=== PATIENT | male | born 1960 | race African-American/Black ===

== ENCOUNTER 2019-01-12 18:16 | Observation (INO) | payer OTHER ==
[2019-01-12] MEDS ORDERED: ASPIRIN 81 MG TABLET, CHEWABLE PO ONE (18:42)
--- NOTE | 2019-01-12 19:16 | RADIOLOGY REPORT (SQ) ---
EXAM DESCRIPTION: CHEST SINGLE VIEW COMPLETED DATE/TIME: 01/12/2019 7:05 pm REASON FOR STUDY: chest pain COMPARISON: None. EXAM PARAMETERS: NUMBER OF VIEWS: One view. TECHNIQUE: Single frontal radiographic view of the chest acquired. RADIATION DOSE: NA LIMITATIONS: None. FINDINGS: LUNGS AND PLEURA: No opacities, masses or pneumothorax. No pleural effusion. MEDIASTINUM AND HILAR STRUCTURES: No masses. Contour normal. HEART AND VASCULAR STRUCTURES: Heart normal in size. Normal vasculature. BONES: No acute findings. HARDWARE: Sternotomy wires. OTHER: No other significant finding. IMPRESSION: NO ACUTE RADIOGRAPHIC FINDING IN THE CHEST. TECHNICAL DOCUMENTATION: JOB ID: [id number] [email or web address]- All Rights Reserved Reading location - IP/workstation name: [email or web address]
[2019-01-12 19:18] LABS: ABSOLUTE EOSINOPHILS # (AUTO) 0.1 10^3/uL (0.0-0.6); ABSOLUTE LYMPHOCYTES (AUTO) 1.2 10^3/uL (0.5-4.7); ABSOLUTE MONOCYTES (AUTO) 0.5 10^3/uL (0.1-1.4); ABSOLUTE NEUT (AUTO) 1.9 10^3/uL (1.7-8.2); BASOPHILS % (AUTO) 0.7 % (0-2); EOSINOPHILS % (AUTO) 2.3 % (0-6); HEMATOCRIT 41.7 % (37.9-51.0); HEMOGLOBIN 13.9 g/dL (13.5-17.0); LYMPHOCYTES % (AUTO) 32.3 % (13-45); MEAN CORPUSCULAR HEMOGLOBIN 28.8 pg (27.0-33.4); MEAN CORPUSCULAR HGB CONC 33.5 g/dL (32.0-36.0); MEAN CORPUSCULAR VOLUME 86 fl (80-97); MONOCYTES % (AUTO) 12.4 % (3-13); PLATELET COUNT 183 10^3/uL (150-450); RED BLOOD COUNT 4.84 10^6/uL (4.35-5.55); RED CELL DISTRIBUTION WIDTH 16.7 % (11.5-14.0); SEGMENTED NEUTROPHILS % (AUTO) 52.3 % (42-78); TOTAL CELLS COUNTED % (AUTO) 100 %; WHITE BLOOD COUNT 3.7 10^3/uL (4.0-10.5)
[2019-01-12 19:38] LABS: ALBUMIN 4.3 g/dL (3.5-5.0); ALKALINE PHOSPHATASE 42 U/L (38-126); ANION GAP 10 (5-19); ASPARTATE AMINO TRANSFERASE 45 U/L (17-59); BILIRUBIN,DIRECT 0.1 mg/dL (0.0-0.4); BILIRUBIN,TOTAL 1.3 mg/dL (0.2-1.3); BLOOD UREA NITROGEN 14 mg/dL (7-20); CALCIUM 9.1 mg/dL (8.4-10.2); CARBON DIOXIDE 25 mmol/L (22-30); CHLORIDE 104 mmol/L (98-107); CREATINE KINASE 564 U/L (55-170); GLUCOSE 152 mg/dL (75-110); POTASSIUM 4.1 mmol/L (3.6-5.0); TOTAL PROTEIN 7.7 g/dL (6.3-8.2)
[2019-01-12 19:50] LABS: CREATINE KINASE MB 3.32 ng/mL (<4.55); TROPONIN I 0.016 ng/mL
[2019-01-12] MEDS ORDERED: MAG HYDROX/AL HYDROX/SIMETH SUSP 30 ML UDCUP PO ONE (20:37)
[2019-01-12] MEDS ORDERED: NITROGLYCERIN 0.4 MG/TAB 25 TAB/BOTTLE SL PRN ×2 (20:37→22:59)
[2019-01-12] MEDS ORDERED: LIDOCAINE 2% VISCOUS SOLN 20 ML UDCUP PO ONE (20:37)
[2019-01-12] MEDS ORDERED: METOCLOPRAMIDE HCL ORAL SOLN 10 MG/10 ML UDCUP PO ONE (20:37)
--- NOTE | 2019-01-12 20:39 | ER Document Report ---
ED Cardiac - General Chief Complaint: Chest Pain Stated Complaint: CHEST PAIN Time Seen by Provider: 01/12/19 18:31 Notes: Patient is a 58-year-old male presents emergency department with a chief complaint of chest pain. His onset of chest pain was about 45 minutes prior to arrival to the emergency department. Patient states that it feels similar to his heart attack he had before. Patient states that the pain is in the mid chest and states it feels like a burning sensation. He is also having left arm pain. He had an ND in 2002 with 2 stents placed in the double bypass surgery in 2017 at [facility]. TRAVEL OUTSIDE OF THE [place] IN LAST 30 DAYS: No - Related Data Allergies/Adverse Reactions: No Known Allergies Allergy (Verified 01/12/19 18:34) Past Medical History - General Information source: Patient - Social History Smoking Status: Former Smoker Family History: Reviewed & Not Pertinent Patient has suicidal ideation: No Patient has homicidal ideation: No - Past Medical History Cardiac Medical History: Reports: Hx Coronary Artery Disease, Hx Heart Attack, Hx Hypercholesterolemia, Hx Hypertension Endocrine Medical History: Reports: Hx Diabetes Mellitus Type 2 Renal/ Medical History: Reports: Hx Kidney Stones GI Medical History: Reports: Hx Gastroesophageal Reflux Disease Psychiatric Medical History: Reports: Hx Depression Past Surgical History: Reports: Hx Cardiac Surgery - stents x 2, Hx Cholecystectomy, Hx Coronary Artery Bypass Graft, Hx Open Heart Surgery - cabg x 2, Hx Orthopedic Surgery - right knee right shoulder - Immunizations Hx Diphtheria, Pertussis, Tetanus Vaccination: Yes Review of Systems - Review of Systems Notes: REVIEW OF SYSTEMS: CONSTITUTIONAL : Denies recent illness. Denies recent unintentional weight loss. Denies fever, chills, or sweats. EENT: Denies eye, ear, throat, or mouth pain, discharge, or symptoms. Denies nasal or sinus congestion. CARDIOVASCULAR: See HPI. RESPIRATORY: Denies shortness of breath, cough, congestion, difficulty b reathing, or wheezing. GASTROINTESTINAL: Denies nausea, vomiting, and diarrhea. Denies abdominal pain. Denies constipation. GENITOURINARY: Denies difficulty urinating, burning, blood in urine, urgency or frequency. MUSCULOSKELETAL: Denies neck and back pain. Denies joint pain or swelling. SKIN: Denies rash, itchiness, or lesions HEMATOLOGIC : Denies easy bruising or bleeding. LYMPHATIC: Denies swollen, painful, enlarged glands. NEUROLOGICAL: Denies no numbness or tingling denies weakness. Denies headache. Denies altered mental status. Denies alteration in speech. PSYCHIATRIC: Denies stress, anxiety, alteration in sleep patterns, or depression. All other systems reviewed and negative. Physical Exam - Vital signs Vitals: Temp Pulse BP Pulse Ox 97.9 F 80 167/96 H 97 01/12/19 18:32 01/12/19 18:32 01/12/19 18:32 01/12/19 18:32 - Notes Notes: PHYSICAL EXAMINATION: GENERAL: Appears well, healthy, well-nourished, no acute distress. HEAD: Normocephalic, atraumatic. EYES: PERRL, conjunctiva normal, all extraocular movements intact, sclera n onicteric ENT: Moist mucous membranes. NECK: Supple, no noticeable swelling, redness, rash. Normal range of motion. LUNGS: Equal breath sounds bilaterally and clear to auscultation. No wheezes rales or rhonchi. CARDIOVASCULAR: S1-S2, regular rate, regular rhythm. Radial pulses 2+, normal. ABDOMEN: Normoactive bowel sounds. Soft, nontender, no guarding, no rebound tenderness, and no masses palpated. EXTREMITIES: Normal strength and range of motion, no pitting or edema. No cyanosis. NEUROLOGICAL: Moves all extremities upon command. Strength 5/5 in all extremities. PSYCH: Normal mood, normal affect. SKIN: Warm, dry. No rash, lesions, ulcerations noted. Normal skin turgor. Course - Re-evaluation Re-evalutation: 01/12/19 20:48 I reevaluated the patient and he states he feels better after receiving aspirin. Still admits to some chest pain. 01/12/19 21:35 We will add GI cocktail to help.Hematology shows a white blood cell count of 3700. CK is 564. His troponin at this time is indeterminant at 0.016. We will add on BNP. Patient states that his chest pain has gone away. I spoke with Dr. Alatorre in regards to this patient. Patient will be admitted to telemetry unit. - Vital Signs Vital signs: Temp Pulse Resp BP Pulse Ox 98 F 63 16 148/98 H 98 01/13/19 00:00 01/13/19 00:00 01/13/19 00:00 01/13/19 00:00 01/13/19 00:00 - Laboratory Result Diagrams: 01/12/19 19:00 01/12/19 19:00 Laboratory results interpreted by me: 01/12/19 01/12/19 19:00 19:00 WBC 3.7 L RDW 16.7 H Glucose 152 H Creatine Kinase 564 H - EKG Interpretation by Me Additional EKG results interpreted by me: 01/12/19 21:40 Sinus rhythm. Rate 82. UT 164; QRS 92; QT 388; QTc 453. Discharge - Discharge Clinical Impression: Chest pain Qualifiers: Chest pain type: chest pain due to myocardial ischemia Ischemic chest pain type: stable angina pectoris Qualified Code(s): I20.8 - Other forms of angina pectoris Condition: Stable Disposition: ADMITTED OBSERVATION Admitting Provider: Celi (Hospitalist) Unit Admitted: Telemetry
[2019-01-12] MEDS ORDERED: ACETAMINOPHEN 325 MG TABLET PO PRN (22:52)
[2019-01-12] MEDS ORDERED: MAG HYDROX/AL HYDROX/SIMETH SUSP 30 ML UDCUP PO PRN (22:52)
[2019-01-12] MEDS ORDERED: TEMAZEPAM 15 MG CAPSULE PO PRN (22:52)
[2019-01-12] MEDS ORDERED: ONDANSETRON HCL INJ/PF 4 MG/2 ML SDV IV PRN (22:52)
[2019-01-12] MEDS ORDERED: HYDRALAZINE HCL INJ/PF 20 MG/1 ML SDV IV PRN (22:59)
[2019-01-12] MEDS ORDERED: LABETALOL HCL INJ 20 MG/4 ML DISP.SYRIN IV PRN (22:59)
[2019-01-12] MEDS ORDERED: INSULIN REG, HUMAN 100 UNIT/ML 3 ML VIAL (PYX) SUBCUT PRN (22:59)
[2019-01-12] MEDS ORDERED: MORPHINE SULFATE 10 MG/ML INJ IV PRN (22:59)
[2019-01-12] MEDS ORDERED: DEXTROSE 40% GEL 15 GM TUBE PO PRN ×2 (23:00)
[2019-01-12] MEDS ORDERED: DEXTROSE 50%-WATER 25 GM/50 ML DISP.SYRIN IV PRN ×2 (23:00)
[2019-01-12] MEDS ORDERED: GLUCAGON,HUMAN RECOMB 1 MG INJ IM PRN (23:00)
[2019-01-12] MEDS ORDERED: MAGNESIUM HYDROXIDE SUSP 30 ML UDCUP PO PRN (23:01)
--- NOTE | 2019-01-12 23:12 | EKG REPORT ---
SEVERITY:- ABNORMAL ECG - SINUS RHYTHM PROBABLE LEFT ATRIAL ABNORMALITY INFERIOR INFARCT, OLD : Confirmed by: Edwin Lyn 12-Jan-2019 23:11:15
[2019-01-13 00:33] LABS: CREATINE KINASE MB 12.5 ng/mL (<4.55)
[2019-01-13 00:34] LABS: FREE T3 3.94 pg/mL (2.77-5.27); FREE T4 (FREE THYROXINE) 1.21 ng/dL (0.78-2.19)
[2019-01-13 00:40] LABS: TROPONIN I 2.9 ng/mL
--- NOTE | 2019-01-13 03:43 | PDOC H&P ---
History of Present Illness Admission Date/PCP: 01/12/19 21:47 NURIS SOLANO MD Patient complains of: Chest pain History of Present Illness: VINOD CASTELLANO is a 58 year old male who presents the emergency room with the acute onset of chest pain. Patient admits developing chest pain at approximately 6 PM on the day of admission, while driving home in his pickup, and presenting to the emergency room within 40 minutes of the onset of the chest pain. Pain developed suddenly and was a severe constant deep burning sensation in his mid chest radiating to his left arm, just like the pain he had with a previous myocardial infarction. The pain was partially relieved by aspirin and a GI cocktail given in the emergency room. He has not identified any other aggravating or ameliorating factors for his chest pain. In the emergency room he was found to have an initial evaluation including cardiac enzymes and an EKG that showed no evidence of acute myocardial ischemia or injury. He was subsequently admitted to observation status for further evaluation and treatment. Past Medical History Cardiac Medical History: Reports: Coronary Artery Disease, Myocardial Infarction, Hyperlipidema, Hypertension Denies: Atrial Fibrillation, Congestive Heart Failure, DVT, Pulmonary Embolism Pulmonary Medical History: Denies: Asthma, Chronic Obstructive Pulmonary Disease (COPD) EENT Medical History: Denies: Cataracts, Ears - Hearing aids Neurological Medical History: Denies: Hemorrhagic CVA, Ischemic CVA, Seizures Endocrine Medical History: Reports: Diabetes Mellitus Type 2, Obesity Denies: Diabetes Mellitus Type 1, Hyperthyroidism, Hypothyroidism Renal/ Medical History: Denies: Chronic Kidney Disease, Nephrolithiasis Malignancy Medical History: Reports: None GI Medical History: Reports: Gastroesophageal Reflux Disease Denies: Cirrhosis, Hepatitis Musculoskeltal Medical History: Denies: Arthritis, Gout Skin Medical History: Denies: Eczema, Psoriasis Psychiatric Medical History: Reports: Depression Denies: Alcohol Dependency, Substance Abuse, Tobacco Dependency Traumatic Medical History: Reports: None Hematology: Denies: Anemia, Bleeding Tendencies Infectious Medical History: Reports: None Past Surgical History Past Surgical History: Reports: Cardiac Catheterization, Cholecystectomy, Coronary Artery Bypass Graft, Coronary Stent - X 2, Orthopedic Surgery - right knee, right shoulder Social History Information Source: Patient Lives with: Spouse/Significant other Smoking Status: Former Smoker Electronic Cigarette use?: No Frequency of Alcohol Use: None Hx Recreational Drug Use: No Drugs: None Hx Prescription Drug Abuse: No - Advance Directive Resuscitation Status: Full Code Surrogate healthcare decision maker:: Liz Castellano Family History Family History: CAD - Grandmother, DM - Self and brother has prediabetes, Hypertension - Mother, Other - Kidney disease in his mother. denies: Malignancy Parental Family History Reviewed: Yes Children Family History Reviewed: No Sibling(s) Family History Reviewed.: Yes Medication/Allergy Home Medications: Hydromorphone HCl [Dilaudid 2 mg Tablet] 2 mg PO Q4HP PRN #10 tablet 12/24/13 Oxycodone HCl/Acetaminophen [Percocet 10-325 Mg Tablet] 1 each PO Q6 PRN #14 tablet 12/25/13 Dicyclomine HCl [Bentyl 20 mg Tablet] 20 mg PO QID PRN #16 tablet 01/19/14 Allergies/Adverse Reactions: No Known Allergies Allergy (Verified 01/12/19 18:34) Review of Systems Constitutional: ABSENT: chills, fever(s) Eyes: ABSENT: visual disturbances, other - Eye pain Ears: ABSENT: hearing changes, other - Ear pain Nose, Mouth, and Throat: ABSENT: mouth pain, sore throat Cardiovascular: PRESENT: as per HPI, chest pain. ABSENT: dyspnea on exertion, edema, orthropnea, palpitations Respiratory: ABSENT: cough, dyspnea Gastrointestinal: ABSENT: abdominal pain, constipation, diarrhea, nausea, vomiting Genitourinary: ABSENT: dysuria, hematuria Musculoskeletal: ABSENT: back pain, joint swelling, muscle weakness Integumentary: ABSENT: pruritus, rash Neurological: ABSENT: confusion, convulsions, focal weakness, memory loss, syncope Psychiatric: ABSENT: anxiety, depression Endocrine: ABSENT: cold intolerance, heat intolerance Hematologic/Lymphatic: ABSENT: easy bleeding, easy bruising Allergic/Immunologic: ABSENT: seasonal rhinorrhea Physical Exam Vital Signs: Temp Pulse Resp BP Pulse Ox 97.9 F 80 27 H 152/98 H 97 01/12/19 18:32 01/12/19 18:32 01/12/19 22:01 01/12/19 22:01 01/12/19 22:01 Intake & Output 01/10/19 01/11/19 01/12/19 23:59 23:59 23:59 Weight 94.8 kg General appearance: PRESENT: no acute distress, cooperative, obese Head exam: PRESENT: atraumatic, normocephalic Eye exam: PRESENT: conjunctiva pink. ABSENT: conjunctival injection, scleral icterus Ear exam: PRESENT: normal external ear exam. ABSENT: bleeding, drainage Mouth exam: PRESENT: dry mucosa, neck supple Neck exam: ABSENT: thyromegaly, tracheal deviation Respiratory exam: PRESENT: clear to auscultation jose juan, symmetrical, unlabored Cardiovascular exam: PRESENT: RRR. ABSENT: clicks, gallop, rubs Pulses: PRESENT: normal radial pulses, normal dorsalis pedis pul Vascular exam: PRESENT: normal capillary refill. ABSENT: pallor GI/Abdominal exam: PRESENT: normal bowel sounds, soft. ABSENT: tenderness Rectal exam: PRESENT: deferred Extremities exam: ABSENT: joint swelling, pedal edema Musculoskeletal exam: ABSENT: deformity, dislocation Neurological exam: PRESENT: alert, oriented to person, oriented to place, oriented to time, oriented to situation, reflexes normal, CN II-XII grossly intact. ABSENT: motor sensory deficit Psychiatric exam: PRESENT: appropriate affect, normal mood Skin exam: PRESENT: dry, intact, warm. ABSENT: jaundice, rash, urticaria Results Laboratory Results: 01/12/19 19:00 01/12/19 19:00 01/12/19 01/12/19 19:00 19:00 WBC 3.7 L RBC 4.84 Hgb 13.9 Hct 41.7 MCV 86 MCH 28.8 MCHC 33.5 RDW 16.7 H Plt Count 183 Seg Neutrophils % 52.3 Sodium 139.0 Potassium 4.1 Chloride 104 Carbon Dioxide 25 Anion Gap 10 BUN 14 Creatinine 1.23 Est GFR ( Amer) > 60 Glucose 152 H Calcium 9.1 Magnesium 1.7 Total Bilirubin 1.3 AST 45 Alkaline Phosphatase 42 Total Protein 7.7 Albumin 4.3 Lipase 150.3 01/12/19 01/12/19 01/12/19 19:00 19:00 19:00 Creatine Kinase 564 H CK-MB (CK-2) 3.32 Troponin I 0.016 NT-Pro-B Natriuret Pep 138 Impressions: Chest X-Ray 01/12/19 18:43 IMPRESSION: NO ACUTE RADIOGRAPHIC FINDING IN THE CHEST. Assessment and Plan - Diagnosis (1) Chest pain Qualifiers: Chest pain type: chest pain due to myocardial ischemia Ischemic chest pain type: stable angina pectoris Qualified Code(s): I20.8 - Other forms of angina pectoris Is this a current diagnosis for this admission?: Yes Plan: Patient will be evaluated with serial cardiac enzymes. Patient will then have a Cardiolite stress test performed in the morning if cardiac enzymes remain negative. Chest pain will be treated with morphine sulfate 2 to 4 mg IV every 2 hours on an as needed basis using a sliding scale for pain. (2) Coronary artery disease Qualifiers: Coronary Disease-Associated Artery/Lesion type: [place] artery [place] vs. 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 Evaluation chest pain as noted in problem #1 above. Initiation of an appropriate coronary artery disease control regiment will be undertaken as needed. Patient will be placed in a cardiac diet. (3) Hypertension Qualifiers: Hypertension type: essential hypertension Qualified Code(s): I10 - Essential (primary) hypertension Is this a current diagnosis for this admission?: Yes Plan: Patient's blood pressure monitored closely throughout his hospital course. Initiation of antihypertensive therapy will be undertaken if needed. Patient will be placed on a cardiac diet. (4) Hyperlipidemia Qualifiers: Hyperlipidemia type: unspecified Qualified Code(s): E78.5 - Hyperlipidemia, unspecified Is this a current diagnosis for this admission?: Yes Plan: A lipid profile will be obtained. Patient will be initiated on an appropriate lipid control agent based upon the results of his tests. Patient will be placed on a cardiac diet. (5) Diabetes mellitus type 2 in obese Is this a current diagnosis for this admission?: Yes Plan: Hemoglobin A1c will be obtained to evaluate the patient's current diabetic status. Patient will be treated with a diabetic diet. Before meals and at bedtime Accu-Cheks will be obtained and a sliding scale insulin protocol will be used to treat hyperglycemia and a hypoglycemic protocol will also be in place. - Time Time Spent with patient: 25-34 minutes Medications reviewed and adjusted accordingly: Yes Anticipated discharge: Home - Inpatient Certification Based on my medical assessment, after consideration of the patient's comorbidities, presenting symptoms, or acuity I expect that the services needed warrant INPATIENT care.: No I certify that my determination is in accordance with my understanding of Medicare's requirements for reasonable and necessary INPATIENT services [42 CFR 412.3e].: No Medical Necessity: Significant Comorbidiites Make Outpatient Treatment Too Risky, Need Close Monitoring Due to Risk of Patient Decompensation, Need For Continuous Telemetry Monitoring, Risk of Complication if Not Cared For in Hospital
[2019-01-13] MEDS ORDERED: HEPARIN SOD (PORCINE) 5,000 UNIT/ML 1 ML VIAL SUBCUT SCH (06:00)
[2019-01-13 07:21] LABS: CHOLESTEROL 217.48 mg/dL (0-200); CREATINE KINASE 724 U/L (55-170); TRIGLYCERIDES 129 mg/dL (<150)
[2019-01-13 07:32] LABS: DIRECT LDL 153 mg/dL (<100)
[2019-01-13 07:35] LABS: CREATINE KINASE MB 14.5 ng/mL (<4.55)
[2019-01-13 07:39] LABS: TROPONIN I 6.03 ng/mL
[2019-01-13] MEDS ORDERED: HEPARIN SODIUM,PORCINE/D5W 25,000 UNIT/250 ML RTUINJ IV ONE (08:13)
[2019-01-13] MEDS ORDERED: HEPARIN SOD (PORCINE) 1,000 UNIT/ML 10 ML VIAL ONE (08:24)
[2019-01-13] MEDS ORDERED: HEPARIN SOD (PORCINE) 1,000 UNIT/ML 10 ML VIAL IV PRN ×2 (08:30→09:00)
[2019-01-13] MEDS ORDERED: HEPARIN SODIUM,PORCINE/D5W 25,000 UNIT/250 ML RTUINJ IV PRN (08:30)
--- NOTE | 2019-01-13 08:38 | PDOC DISCHARGE SUMMARY ---
Impression - Admit/DC Date/PCP Admission Date/Primary Care Provider: 01/12/19 21:47 NURIS SOLANO MD Discharge Date: 01/13/19 - Discharge Diagnosis (1) Acute [place] Is this a current diagnosis for this admission?: Yes (2) Coronary artery disease Is this a current diagnosis for this admission?: Yes (3) Diabetes mellitus type 2 in obese Is this a current diagnosis for this admission?: Yes (4) Hypertension Is this a current diagnosis for this admission?: Yes - Assessment Summary: 58 year old male who presents the emergency room with the acute onset of chest pain. Patient admits developing chest pain at approximately 6 PM on the day of admission, while driving home in his pickup, and presenting to the emergency room within 40 minutes of the onset of the chest pain. Pain developed suddenly and was a severe constant deep burning sensation in his mid chest radiating to his left arm, just like the pain he had with a previous myocardial infarction. The pain was partially relieved by aspirin and a GI cocktail given in the emergency room. He has not identified any other aggravating or ameliorating factors for his chest pain. In the emergency room he was found to have an initial evaluation including cardiac enzymes and an EKG that showed no evidence of acute myocardial ischemia or injury. He was subsequently admitted to observation status for further evaluation and treatment. 01/[id number]-[id number]-old male with history of open heart surgery in 2017, hypertension, diabetes mellitus, hypercholesterolemia admitted with chest pains. EKG were normal. Troponin is 6.0. I spoke to Dr. Peterson here because of high risk and he is requested for transfer to [facility] for further management. I spoke to Dr. Bolton there she agreed to take the patient for cardiac cath update. Discussed the plan of care with the patient he agreed to go to [facility] today. Patient is going to be n.p.o. and he was started on a heparin drip. in My opinion patient has acute OK. - Additional Information Resuscitation Status: Full Code Referrals: DINORAH SCHULER MD [COMMUNITY BASED STAFF] - Follow up as needed History of Present Illiness History of Present Illness: VINOD ELIZONDO is a 58 year old male 58 year old male who presents the emergency room with the acute onset of chest pain. Patient admits developing chest pain at approximately 6 PM on the day of admission, while driving home in his pickup, and presenting to the emergency room within 40 minutes of the onset of the chest pain. Pain developed suddenly and was a severe constant deep burning sensation in his mid chest radiating to his left arm, just like the pain he had with a previous myocardial infarction. The pain was partially relieved by aspirin and a GI cocktail given in the emergency room. He has not identified any other aggravating or ameliorating factors for his chest pain. In the emergency room he was found to have an initial evaluation including cardiac enzymes and an EKG that showed no evidence of acute myocardial ischemia or injury. He was subsequently admitted to observation status for further evaluation and treatment. Hospital Course Hospital Course: 58 year old male who presents the emergency room with the acute onset of chest pain. Patient admits developing chest pain at approximately 6 PM on the day of admission, while driving home in his pickup, and presenting to the emergency room within 40 minutes of the onset of the chest pain. Pain developed suddenly and was a severe constant deep burning sensation in his mid chest radiating to his left arm, just like the pain he had with a previous myocardial infarction. The pain was partially relieved by aspirin and a GI cocktail given in the emergency room. He has not identified any other aggravating or ameliorating factors for his chest pain. In the emergency room he was found to have an initial evaluation including cardiac enzymes and an EKG that showed no evidence of acute myocardial ischemia or injury. He was subsequently admitted to observation status for further evaluation and treatment. 01/13/2019-patient came with chest pain initial troponin is 0.016-second troponin is 2.9 and third troponin 6.0. Patient has a previous history of open heart surgery in 2017 in [facility] and risk factors of diabetes mellitus hypertension hypercholesterolemia I discussed the case with Dr. Peterson's recommendation is to transfer the patient to [facility] for cardiac cath. I spoke to Dr. Bolton she agreed to take the patient up there for further management. Acute OK core measures are implemented started on heparin drip. Physical Exam Vital Signs: Temp Pulse Resp BP Pulse Ox 98.5 F 66 20 141/83 H 97 01/13/19 04:02 01/13/19 04:02 01/13/19 04:02 01/13/19 04:02 01/13/19 04:02 Intake & Output 01/12/19 01/13/19 01/14/19 06:59 06:59 06:59 Intake Total 300 Balance 300 Weight 93.2 kg General appearance: PRESENT: no acute distress Head exam: PRESENT: atraumatic Eye exam: PRESENT: PERRLA Mouth exam: PRESENT: neck supple Teeth exam: PRESENT: poor dentation Neck exam: ABSENT: carotid bruit, JVD, lymphadenopathy, thyromegaly Respiratory exam: PRESENT: decreased breath sounds Cardiovascular exam: PRESENT: RRR. ABSENT: diastolic murmur, rubs, systolic murmur GI/Abdominal exam: PRESENT: normal bowel sounds, soft. ABSENT: distended, guarding, mass, organolmegaly, rebound, tenderness Rectal exam: PRESENT: deferred Extremities exam: PRESENT: full ROM. ABSENT: calf tenderness, clubbing, pedal edema Neurological exam: PRESENT: alert, awake, oriented to person, oriented to place, oriented to time, oriented to situation, CN II-XII grossly intact. ABSENT: motor sensory deficit Psychiatric exam: PRESENT: appropriate affect, normal mood. ABSENT: homicidal ideation, suicidal ideation Results Laboratory Results: WBC 3.7 10^3/uL (4.0-10.5) L 01/12/19 19:00 RBC 4.84 10^6/uL (4.35-5.55) 01/12/19 19:00 Hgb 13.9 g/dL (13.5-17.0) 01/12/19 19:00 Hct 41.7 % (37.9-51.0) 01/12/19 19:00 MCV 86 fl (80-97) 01/12/19 19:00 MCH 28.8 pg (27.0-33.4) 01/12/19 19:00 MCHC 33.5 g/dL (32.0-36.0) 01/12/19 19:00 RDW 16.7 % (11.5-14.0) H 01/12/19 19:00 Plt Count 183 10^3/uL (150-450) 01/12/19 19:00 Lymph % (Auto) 32.3 % (13-45) 01/12/19 19:00 [place] % (Auto) 12.4 % (3-13) 01/12/19 19:00 Eos % (Auto) 2.3 % (0-6) 01/12/19 19:00 Baso % (Auto) 0.7 % (0-2) 01/12/19 19:00 Absolute Neuts (auto) 1.9 10^3/uL (1.7-8.2) 01/12/19 19:00 Absolute Lymphs (auto) 1.2 10^3/uL (0.5-4.7) 01/12/19 19:00 Absolute Monos (auto) 0.5 10^3/uL (0.1-1.4) 01/12/19 19:00 Absolute Eos (auto) 0.1 10^3/uL (0.0-0.6) 01/12/19 19:00 Absolute Basos (auto) 0.0 10^3/uL (0.0-0.2) 01/12/19 19:00 Seg Neutrophils % 52.3 % (42-78) 01/12/19 19:00 Sodium 139.0 mmol/L (137-145) 01/12/19 19:00 Potassium 4.1 mmol/L (3.6-5.0) 01/12/19 19:00 Chloride 104 mmol/L (98-107) 01/12/19 19:00 Carbon Dioxide 25 mmol/L (22-30) 01/12/19 19:00 Anion Gap 10 (5-19) 01/12/19 19:00 BUN 14 mg/dL (7-20) 01/12/19 19:00 Creatinine 1.23 mg/dL (0.52-1.25) 01/12/19 19:00 Est GFR ( Amer) > 60 (>60) 01/12/19 19:00 Est GFR (MDRD) Non-Af > 60 (>60) 01/12/19 19:00 Glucose 152 mg/dL (75-110) H 01/12/19 19:00 POC Glucose 113 mg/dL (70-110) H 01/13/19 07:38 Hemoglobin A1c % 6.4 % (4.7-6.0) H 01/12/19 23:45 Calcium 9.1 mg/dL (8.4-10.2) 01/12/19 19:00 Magnesium 1.8 mg/dL (1.6-2.3) 01/12/19 23:45 Total Bilirubin 1.3 mg/dL (0.2-1.3) 01/12/19 19:00 Direct Bilirubin 0.1 mg/dL (0.0-0.4) 01/12/19 19:00 Neonat Total Bilirubin Not Reportable 01/12/19 19:00 Neonat Direct Bilirubin Not Reportable 01/12/19 19:00 Neonat Indirect Bili Not Reportable 01/12/19 19:00 AST 45 U/L (17-59) 01/12/19 19:00 ALT 64 U/L (<50) 01/12/19 19:00 Alkaline Phosphatase 42 U/L (38-126) 01/12/19 19:00 Creatine Kinase 724 U/L (55-170) H 01/13/19 06:05 CK-MB (CK-2) 14.50 ng/mL (<4.55) H 01/13/19 06:05 Troponin I 6.030 ng/mL 01/13/19 06:05 NT-Pro-B Natriuret Pep 152 pg/mL (5-900) 01/12/19 23:45 Total Protein 7.7 g/dL (6.3-8.2) 01/12/19 19:00 Albumin 4.3 g/dL (3.5-5.0) 01/12/19 19:00 Triglycerides 129 mg/dL (<150) 01/13/19 06:05 Cholesterol 217.48 mg/dL (0-200) H 01/13/19 06:05 LDL Cholesterol Direct 153 mg/dL (<100) H 01/13/19 06:05 VLDL Cholesterol 26.0 mg/dL (10-31) 01/13/19 06:05 HDL Cholesterol 31 mg/dL (>40) L 01/13/19 06:05 Lipase 150.3 U/L (23-300) 01/12/19 19:00 TSH 1.40 uIU/mL (0.47-4.68) 01/13/19 06:05 Free T4 1.21 ng/dL (0.78-2.19) 01/12/19 23:45 Free T3 pg/mL 3.94 pg/mL (2.77-5.27) 01/12/19 23:45 01/12/19 01/12/19 01/12/19 19:00 19:00 23:45 CK-MB (CK-2) 3.32 12.50 H Troponin I 0.016 2.900 NT-Pro-B Natriuret Pep 138 152 01/13/19 06:05 CK-MB (CK-2) 14.50 H Troponin I 6.030 NT-Pro-B Natriuret Pep Impressions: Chest X-Ray 01/12/19 18:43 IMPRESSION: NO ACUTE RADIOGRAPHIC FINDING IN THE CHEST. Plan Time Spent: Greater than 30 Minutes Stroke Is this a Stroke Patient?: No Acute Heart Failure - Is this a Heart Failure Patient?: No Follow-up Appointment scheduled within 7 days?: No, document reason - Patient is going to [facility] for cardiac cath today.
--- NOTE | 2019-01-13 08:40 | PDOC TRANSFER SUMMARY ---
General Admission Date/PCP: 01/12/19 21:47 NURIS SOLANO MD Resuscitation Status: Full Code - Transfer Diagnosis (1) Acute [place] Is this a current diagnosis for this admission?: Yes (2) Coronary artery disease Is this a current diagnosis for this admission?: Yes (3) Diabetes mellitus type 2 in obese Is this a current diagnosis for this admission?: Yes (4) Hypertension Is this a current diagnosis for this admission?: Yes - Transfer Medications Transfer Medications: Current Medications Acetaminophen (Tylenol 325 Mg Tablet) 650 mg PO Q4HP PRN PRN Reason: FOR HEADACHE Stop: 02/11/19 22:51 Al Hydrox/Mg Hydrox/Simethicone (Maalox Plus Susp 30 Udcup) 30 ml PO Q4HP PRN PRN Reason: HEARTBURN Stop: 02/11/19 22:51 Atorvastatin Calcium (Lipitor 20 Mg Tablet) 20 mg PO QHS PETE Stop: 02/12/19 21:59 Dextrose (Dextrose Inj 50% Syringe (25 Gm/50 Ml)) 12.5 gm IV PRN PRN; Protocol PRN Reason: FOR BG 50-69 IN ALERT PATIENT Stop: 02/11/19 22:59 Dextrose (Dextrose Inj 50% Syringe (25 Gm/50 Ml)) 25 gm IV PRN PRN; Protocol PRN Reason: PER PROTOCOL Stop: 02/11/19 22:59 Docusate Sodium (Colace 100 Mg Capsule) 100 mg PO BID PETE Stop: 02/12/19 09:59 Famotidine (Pepcid 20 Mg Tablet) 20 mg PO BID PETE Stop: 02/12/19 09:59 Glucagon (Glucagen Inj 1 Mg Vial) 1 mg IM PRN PRN; Protocol PRN Reason: Evaluate for BG < 70 Stop: 02/11/19 22:59 Glucose (Glutose 40% Gel 15 Gm Tube) 15 gm PO PRN PRN; Protocol PRN Reason: FOR BG 50-69 IN ALERT PATIENT Stop: 02/11/19 22:59 Glucose (Glutose 40% Gel 15 Gm Tube) 30 gm PO PRN PRN; Protocol PRN Reason: FOR BG < 50 IN ALERT PATIENT Stop: 02/11/19 22:59 Heparin Sodium (Porcine) (Heparin Inj 1,000 Unit/Ml 10 Ml Vial) 4,000 unit IV NOW ONE; Protocol Stop: 01/13/19 09:01 Hydralazine HCl (Apresoline Inj/Pf 20 Mg/1 Ml Sdv) 20 mg IV Q4HP PRN PRN Reason: Give For Sbp > 160 / Dbp > 100 Stop: 02/11/19 22:58 Heparin Sodium/Dextrose (Heparin Rtu 25,000 Unit/250 Ml D5w Premix) 25,000 unit in 250 mls @ 0 mls/hr IV CONTINUOUS PRN; Protocol PRN Reason: THIS MED IS NOT "PRN" Stop: 02/12/19 08:29 Insulin Human Regular (Humulin R (Pyxis) Insulin 100 Unit/Ml 3ml) 0 - 15 unit SUBCUT ACHSP PRN; Protocol PRN Reason: PER PROTOCOL Stop: 02/11/19 22:58 Labetalol HCl (Normodyne Inj 20 Mg/4 Ml Syringe) 20 mg IV Q10MP PRN PRN Reason: KEEP SBP < 160 AND DBP < 100 Stop: 02/11/19 22:58 Magnesium Hydroxide (Milk Of Magnesia 30 Ml Udcup) 30 ml PO HSP PRN PRN Reason: FOR CONSTIPATION Stop: 02/11/19 23:00 Morphine Sulfate (Morphine 10 Mg/Ml Inj) 0 mg IV Q2HP PRN; Protocol PRN Reason: Pain Per [facility] 5 point scale SD Stop: 01/19/19 22:58 Nitroglycerin (Nitrostat 0.4 Mg (1/150 Gr) Tabs 25/Bottle) 1 tab SL Q5MP PRN PRN Reason: FOR CHEST PAIN Stop: 02/11/19 22:58 Ondansetron HCl (Zofran Inj/Pf 4 Mg/2 Ml Sdv) 4 mg IV Q6HP PRN PRN Reason: FOR NAUSEA/VOMITING Stop: 02/11/19 22:51 Sodium Chloride (Saline Flush 2.5 Ml Monoject Prefil Syrin) 2.5 ml IV Q8 PETE Stop: 02/12/19 05:59 Last Admin: 01/13/19 06:12 Dose: 2.5 ml Documented by: Temazepam (Restoril 15 Mg Capsule) 15 mg PO HSP PRN PRN Reason: SLEEP OR INSOMNIA Stop: 01/19/19 22:51 - Allergies Allergies/Adverse Reactions: No Known Allergies Allergy (Verified 01/12/19 18:34) Hospital Course Hospital Course: 58 year old male who presents the emergency room with the acute onset of chest pain. Patient admits developing chest pain at approximately 6 PM on the day of admission, while driving home in his pickup, and presenting to the emergency room within 40 minutes of the onset of the chest pain. Pain developed suddenly and was a severe constant deep burning sensation in his mid chest radiating to his left arm, just like the pain he had with a previous myocardial infarction. The pain was partially relieved by aspirin and a GI cocktail given in the emergency room. He has not identified any other aggravating or ameliorating factors for his chest pain. In the emergency room he was found to have an initial evaluation including cardiac enzymes and an EKG that showed no evidence of acute myocardial ischemia or injury. He was subsequently admitted to observation status for further evaluation and treatment. 01/[id number]-nfzk-old male with history of open heart surgery in 2017, hypertension, diabetes mellitus, hypercholesterolemia admitted with chest pains. EKG were normal. Troponin is 6.0. I spoke to Dr. Peterson here because of high r isk and he is requested for transfer to [facility] for further management. I spoke to Dr. Bolton there she agreed to take the patient for cardiac cath update. Discussed the plan of care with the patient he agreed to go to [facility] today. Patient is going to be n.p.o. and he was started on a heparin drip. in My opinion patient has acute [place]. Physical Exam Vital Signs: Temp Pulse Resp BP Pulse Ox 98.5 F 66 20 141/83 H 97 01/13/19 04:02 01/13/19 04:02 01/13/19 04:02 01/13/19 04:02 01/13/19 04:02 Intake & Output 01/12/19 01/13/19 01/14/19 06:59 06:59 06:59 Intake Total 300 Balance 300 Weight 93.2 kg General appearance: PRESENT: no acute distress, obese Eye exam: PRESENT: PERRLA Mouth exam: PRESENT: neck supple Teeth exam: PRESENT: poor dentation Neck exam: ABSENT: carotid bruit, JVD, lymphadenopathy, thyromegaly Respiratory exam: PRESENT: decreased breath sounds Cardiovascular exam: PRESENT: RRR. ABSENT: diastolic murmur, rubs, systolic murmur GI/Abdominal exam: PRESENT: normal bowel sounds, soft. ABSENT: distended, guarding, mass, organolmegaly, rebound, tenderness Rectal exam: PRESENT: deferred Extremities exam: PRESENT: full ROM. ABSENT: calf tenderness, clubbing, pedal edema Neurological exam: PRESENT: alert, awake, oriented to person, oriented to place, oriented to time, oriented to situation, CN II-XII grossly intact. ABSENT: motor sensory deficit Psychiatric exam: PRESENT: appropriate affect, normal mood. ABSENT: homicidal ideation, suicidal ideation Results Laboratory Results: 01/12/19 19:00 01/12/19 01/12/19 01/12/19 19:00 19:00 23:45 WBC 3.7 L RBC 4.84 Hgb 13.9 Hct 41.7 MCV 86 MCH 28.8 MCHC 33.5 RDW 16.7 H Plt Count 183 Seg Neutrophils % 52.3 Sodium 139.0 Potassium 4.1 Chloride 104 Carbon Dioxide 25 Anion Gap 10 BUN 14 Creatinine 1.23 Est GFR ( Amer) > 60 Glucose 152 H Calcium 9.1 Magnesium 1.7 1.8 Total Bilirubin 1.3 AST 45 Alkaline Phosphatase 42 Total Protein 7.7 Albumin 4.3 Triglycerides Cholesterol LDL Cholesterol Direct VLDL Cholesterol HDL Cholesterol Lipase 150.3 TSH Free T4 Free T3 pg/mL 01/12/19 01/13/19 01/13/19 23:45 06:05 06:05 WBC RBC Hgb Hct MCV MCH MCHC RDW Plt Count Seg Neutrophils % Sodium Potassium Chloride Carbon Dioxide Anion Gap BUN Creatinine Est GFR ( Amer) Glucose Calcium Magnesium Total Bilirubin AST Alkaline Phosphatase Total Protein Albumin Triglycerides 129 Cholesterol 217.48 H LDL Cholesterol Direct 153 H VLDL Cholesterol 26.0 HDL Cholesterol 31 L Lipase TSH 1.40 Free T4 1.21 Free T3 pg/mL 3.94 01/12/19 01/12/19 01/12/19 19:00 19:00 19:00 Creatine Kinase 564 H CK-MB (CK-2) 3.32 Troponin I 0.016 NT-Pro-B Natriuret Pep 138 01/12/19 01/12/19 01/13/19 23:45 23:45 06:05 Creatine Kinase 631 H 724 H CK-MB (CK-2) 12.50 H Troponin I 2.900 NT-Pro-B Natriuret Pep 152 01/13/19 06:05 Creatine Kinase CK-MB (CK-2) 14.50 H Troponin I 6.030 NT-Pro-B Natriuret Pep Impressions: Chest X-Ray 01/12/19 18:43 IMPRESSION: NO ACUTE RADIOGRAPHIC FINDING IN THE CHEST. Plan Discharge Plan: Patient is going to [facility] for cardiac cath today. Time Spent: Greater than 30 Minutes
[2019-01-13 08:44] LABS: ABSOLUTE EOSINOPHILS # (AUTO) 0.1 10^3/uL (0.0-0.6); ABSOLUTE LYMPHOCYTES (AUTO) 1.3 10^3/uL (0.5-4.7); ABSOLUTE MONOCYTES (AUTO) 0.6 10^3/uL (0.1-1.4); ABSOLUTE NEUT (AUTO) 2.3 10^3/uL (1.7-8.2); BASOPHILS % (AUTO) 0.4 % (0-2); EOSINOPHILS % (AUTO) 2.2 % (0-6); HEMATOCRIT 41.7 % (37.9-51.0); LYMPHOCYTES % (AUTO) 30.3 % (13-45); MEAN CORPUSCULAR HEMOGLOBIN 28.9 pg (27.0-33.4); MEAN CORPUSCULAR HGB CONC 33.6 g/dL (32.0-36.0); MEAN CORPUSCULAR VOLUME 86 fl (80-97); MONOCYTES % (AUTO) 13.2 % (3-13); PLATELET COUNT 173 10^3/uL (150-450); RED BLOOD COUNT 4.85 10^6/uL (4.35-5.55); RED CELL DISTRIBUTION WIDTH 16.3 % (11.5-14.0); SEGMENTED NEUTROPHILS % (AUTO) 53.9 % (42-78); TOTAL CELLS COUNTED % (AUTO) 100 %; WHITE BLOOD COUNT 4.3 10^3/uL (4.0-10.5)
[2019-01-13 08:46] VITALS: BP 145/96
[2019-01-13] MEDS ORDERED: HEPARIN SOD (PORCINE) 1,000 UNIT/ML 10 ML VIAL IV ONE (09:00)
[2019-01-13 09:08] LABS: INTERNATIONAL RATION (INR) 1.04; PARTIAL THROMBOPLASTIN TIME 28.3 SEC (23.5-35.8); PROTHROMBIN TIME 13.7 SEC (11.4-15.4)
--- NOTE | 2019-01-13 09:13 | EKG REPORT ---
SEVERITY:- ABNORMAL ECG - SINUS RHYTHM INFERIOR INFARCT, OLD : Confirmed by: Edwin Lyn 13-Jan-2019 09:12:27
[2019-01-13] MEDS ORDERED: FAMOTIDINE 20 MG TABLET PO SCH (10:00)
[2019-01-13] MEDS ORDERED: DOCUSATE SODIUM 100 MG CAPSULE PO SCH (10:00)
[2019-01-13] MEDS ORDERED: ATORVASTATIN CALCIUM 20 MG TABLET PO SCH (22:00)
== END 2019-01-13 11:12 | disposition short-term general hospital (02) ==
LOC: ER 18:16 → EH 21:47 → 3W 23:54
PROVIDERS: ADMIT Emergency Medicine; ATTEND Emergency Medicine
DX: I21.9 Acute myocardial infarction, unspecified (principal); I25.10 Atherosclerotic heart disease of native coronary artery without angina pectoris; E11.9 Type 2 diabetes mellitus without complications; E66.9 Obesity, unspecified; I10 Essential (primary) hypertension; I25.2 Old myocardial infarction; E78.00 Pure hypercholesterolemia, unspecified; K21.9 Gastro-esophageal reflux disease without esophagitis; F32.9 Major depressive disorder, single episode, unspecified; Z79.4 Long term (current) use of insulin; Z95.1 Presence of aortocoronary bypass graft; Z87.891 Personal history of nicotine dependence; Z95.5 Presence of coronary angioplasty implant and graft; Z83.3 Family history of diabetes mellitus; Z82.49 Family history of ischemic heart disease and other diseases of the circulatory system
CPT/HCPCS: 93005 ×2; 99285; 36415 ×2; 84439; 82553 ×2; 82962; 82550 ×2; 83690; 83735; 84443; 85025 ×2; 85610; 85730; 80053; 84484 ×2; 84481; 83036; 80061; 83880; 71045; 93010 ×2; J1644 ×3; J3490 ×2; G0378